=== PATIENT | female | born 1970 | race Hispanic/Latino ===

== ENCOUNTER 2018-08-21 05:35 | Emergency (ER) | payer MEDICAID ==
[2018-08-21] MEDS ORDERED: ONDANSETRON HCL 4 MG/2 ML VIAL ONE (06:14)
[2018-08-21 06:19] LABS: EOSINOPHILS % (AUTO) 3.6 % (0.0-8.0); HEMATOCRIT 41.7 % (36-48); LYMPHOCYTES % (AUTO) 17.4 % (21.0-51.0); MEAN CORPUSCULAR HEMOGLOBIN 31.8 pg (27.0-33.0); MEAN CORPUSCULAR HGB CONC 35.2 g/dL (32.0-36.0); MEAN CORPUSCULAR VOLUME 90.3 fL (79-99); MONOCYTES % (AUTO) 4.4 % (3.0-13.0); NEUTROPHILS % (AUTO) 73.6 % (40.0-77.0); PLATELET COUNT (AUTO) 259 K/uL (130-400); RED BLOOD CELL COUNT(AUTO) 4.62 MIL/uL (4.00-5.50); RED CELL DISTRIBUTION WIDTH 12.8 % (11.0-15.5); WHITE BLOOD COUNT (AUTO) 10.8 K/uL (4.8-10.8)
[2018-08-21 06:28] LABS: CREATININE 0.8 mg/dL (0.5-1.5)
[2018-08-21 06:31] LABS: APPEARANCE,URINE CLEAR (CLEAR); BILIRUBIN,URINE NEGATIVE (NEGATIVE); COLOR,URINE YELLOW (YELLOW); GLUCOSE, URINE (UA) 250 mg/dL (NEGATIVE); KETONES,URINE 15 mg/dL (NEGATIVE); LEUKOCYTE ESTERASE ,URINE NEGATIVE (NEGATIVE); NITRATE,URINE NEGATIVE (NEGATIVE); OCCULT BLOOD,URINE NEGATIVE (NEGATIVE); PROTEIN,URINE 30 (NEGATIVE); UROBILINOGEN,URINE 0.2 mg/dL (0.2-1.0)
[2018-08-21 06:33] LABS: ALBUMIN 3.9 g/dL (3.5-5.0); BILIRUBIN,DIRECT 0.1 mg/dL (0.0-0.3); BILIRUBIN,TOTAL 0.3 mg/dL (0.2-1.0); TOTAL PROTEIN, SERUM 7.9 g/dL (6.0-8.3)
[2018-08-21] MEDS ORDERED: SODIUM CHLORIDE 0.9% 1000ML 1,000 ML IV ONE (06:57)
[2018-08-21] MEDS ORDERED: KETOROLAC TROMETHAMINE 15MG/ML ONE (06:58)
[2018-08-21 07:19] LABS: SQUAMOUS EPITHELIAL CELL,UR Few /HPF (0-2)
[2018-08-21 07:20] LABS: MUCUS,URINE Rare LPF (None Seen)
[2018-08-21 07:22] LABS: BACTERIA,URINE Few /HPF (None Seen); RBC,URINE None Seen /HPF (0-1); WBC,URINE None Seen /HPF (0-1)
== END 2018-08-21 07:53 | disposition home or self-care (01) ==
LOC: EDH 05:35
DX: A09 Infectious gastroenteritis and colitis, unspecified (principal); F41.1 Generalized anxiety disorder; E86.0 Dehydration; F32.9 Major depressive disorder, single episode, unspecified; F41.9 Anxiety disorder, unspecified; Z90.710 Acquired absence of both cervix and uterus
CPT/HCPCS: 36415; 80048; 80076; 81001; 85025; 93005; 96374; 96375; 99285; J1885; J2405; J7030